=== PATIENT | female | born 1965 | race Caucasian/White ===

== ENCOUNTER 2016-10-21 09:19 | Outpatient (CLI) | payer MEDICARE | END 2016-10-21 09:20 | disposition home or self-care (01) | DX: F31.5 Bipolar disorder, current episode depressed, severe, with psychotic features (principal) ==

== ENCOUNTER 2016-10-30 08:00 | Outpatient (CLI) | payer MEDICARE | END 2016-10-30 08:01 | disposition home or self-care (01) | DX: F31.5 Bipolar disorder, current episode depressed, severe, with psychotic features (principal) ==

== ENCOUNTER 2016-11-12 10:40 | Outpatient (CLI) | payer MEDICARE | END 2016-11-12 10:41 | disposition home or self-care (01) | DX: F31.5 Bipolar disorder, current episode depressed, severe, with psychotic features (principal) ==

== ENCOUNTER 2016-11-20 13:15 | Outpatient (CLI) | payer MEDICARE | END 2016-11-20 13:16 | disposition home or self-care (01) | DX: F31.5 Bipolar disorder, current episode depressed, severe, with psychotic features (principal) ==

== ENCOUNTER 2016-11-27 14:21 | Outpatient (CLI) | payer MEDICARE | END 2016-11-27 14:22 | disposition home or self-care (01) | DX: F31.5 Bipolar disorder, current episode depressed, severe, with psychotic features (principal) ==

== ENCOUNTER 2016-12-07 12:46 | Outpatient (CLI) | payer MEDICARE | END 2016-12-07 12:47 | disposition home or self-care (01) | DX: F31.5 Bipolar disorder, current episode depressed, severe, with psychotic features (principal) ==

== ENCOUNTER 2016-12-15 11:29 | Outpatient (CLI) | payer MEDICARE | END 2016-12-15 11:30 | DX: F31.5 Bipolar disorder, current episode depressed, severe, with psychotic features (principal) ==

== ENCOUNTER 2016-12-22 09:28 | Outpatient (CLI) | payer MEDICARE | END 2016-12-22 09:29 | disposition home or self-care (01) | DX: F31.5 Bipolar disorder, current episode depressed, severe, with psychotic features (principal) ==

== ENCOUNTER 2016-12-29 12:42 | Outpatient (CLI) | payer MEDICARE | END 2016-12-29 12:43 | disposition home or self-care (01) | DX: F31.5 Bipolar disorder, current episode depressed, severe, with psychotic features (principal) ==

== ENCOUNTER 2017-01-05 11:02 | Outpatient (CLI) | payer MEDICARE | END 2017-01-05 11:03 | disposition home or self-care (01) | DX: F31.5 Bipolar disorder, current episode depressed, severe, with psychotic features (principal) ==

== ENCOUNTER 2017-01-12 11:15 | Outpatient (CLI) | payer MEDICARE | END 2017-01-12 11:16 | disposition home or self-care (01) | DX: F31.5 Bipolar disorder, current episode depressed, severe, with psychotic features (principal) ==

== ENCOUNTER 2017-01-19 09:34 | Outpatient (CLI) | payer MEDICARE | END 2017-01-19 09:35 | disposition home or self-care (01) | DX: F31.5 Bipolar disorder, current episode depressed, severe, with psychotic features (principal) ==

== ENCOUNTER 2017-01-26 09:28 | Outpatient (CLI) | payer MEDICARE | END 2017-01-26 09:29 | disposition home or self-care (01) | DX: F31.5 Bipolar disorder, current episode depressed, severe, with psychotic features (principal) ==

== ENCOUNTER 2017-02-09 09:29 | Outpatient (CLI) | payer MEDICARE | END 2017-02-09 09:30 | disposition home or self-care (01) | DX: F31.5 Bipolar disorder, current episode depressed, severe, with psychotic features (principal) ==

== ENCOUNTER 2017-02-16 11:09 | Outpatient (CLI) | payer MEDICARE | END 2017-02-16 11:10 | disposition home or self-care (01) | DX: F31.5 Bipolar disorder, current episode depressed, severe, with psychotic features (principal) ==

== ENCOUNTER 2017-02-23 10:37 | Outpatient (CLI) | payer MEDICARE | END 2017-02-23 10:38 | disposition home or self-care (01) | DX: F31.5 Bipolar disorder, current episode depressed, severe, with psychotic features (principal) ==

== ENCOUNTER 2017-03-02 12:49 | Outpatient (CLI) | payer MEDICARE | END 2017-03-02 12:50 | disposition home or self-care (01) | LOC: LAB.F 12:49 | PROVIDERS: ATTEND Physician Assistant Medical | DX: F31.5 Bipolar disorder, current episode depressed, severe, with psychotic features (principal) | CPT/HCPCS: 36415; 80164 ==

== ENCOUNTER 2017-03-09 10:04 | Outpatient (CLI) | payer MEDICARE | END 2017-03-09 10:05 | disposition home or self-care (01) | LOC: LAB.F 10:04 | PROVIDERS: ATTEND Physician Assistant Medical | DX: F31.5 Bipolar disorder, current episode depressed, severe, with psychotic features (principal) | CPT/HCPCS: 36415; 80164 ==

== ENCOUNTER 2017-03-22 12:46 | Outpatient (CLI) | payer MEDICARE | END 2017-03-22 12:47 | disposition home or self-care (01) | LOC: LAB.F 12:46 | PROVIDERS: ATTEND Physician Assistant Medical | DX: F31.5 Bipolar disorder, current episode depressed, severe, with psychotic features (principal) | CPT/HCPCS: 36415; 80164 ==

== ENCOUNTER 2017-03-23 08:35 | Outpatient (CLI) | payer MEDICARE | END 2017-03-23 08:36 | disposition home or self-care (01) | LOC: DI 08:35 | PROVIDERS: ATTEND Physician Assistant Medical | DX: R01.1 Cardiac murmur, unspecified (principal); I49.9 Cardiac arrhythmia, unspecified | CPT/HCPCS: 93306 ==

== ENCOUNTER 2017-03-30 09:55 | Outpatient (CLI) | payer MEDICARE | END 2017-03-30 09:56 | disposition home or self-care (01) | LOC: LAB.F 09:55 | PROVIDERS: ATTEND Physician Assistant Medical | DX: F31.5 Bipolar disorder, current episode depressed, severe, with psychotic features (principal) | CPT/HCPCS: 36415; 80164 ==

== ENCOUNTER 2017-07-27 13:10 | Outpatient (CLI) | payer MEDICARE ==
--- NOTE | 2017-07-30 13:08 | Mammography Report ---
DIGITAL SCREENING MAMMOGRAM: 07/27/2017 CLINICAL INDICATION: A 52-year-old for screening, history of implants. The patient's previous mammograms have been purged. This will serve as a new baseline. TECHNIQUE: Routine CC and MLO projections were obtained of the breasts as well as bilateral implant displaced views. FINDINGS: The breasts demonstrate fatty replacement bilaterally. Coarse, typically benign calcifica tions are present. Bilateral subpectoral saline implants are present. No suspicious masses, cluster ed microcalcifications, or regions of architectural distortion are identified. IMPRESSION: BENIGN FINDINGS. RECOMMENDATION: Routine annual screening unless otherwise clinically indicated. BIRADS CATEGORY 2 - BENIGN FINDINGS. STANDARD QUALIFYING STATEMENTS 1. This examination was reviewed with the aid of Computer-Aided Detection (CAD). 2. A negative or benign imaging report should not delay biopsy if clinically suspicious findings are present. Consider surgical consultation if warranted. More than 5% of cancers are not identified by i maging. 3. Dense breasts may obscure an underlying neoplasm. JOB #: [id number] EXT JOB #:[id number]
== END 2017-07-27 13:11 | disposition home or self-care (01) ==
LOC: DI.S 13:10
PROVIDERS: ATTEND Physician Assistant Medical
DX: Z12.31 Encounter for screening mammogram for malignant neoplasm of breast (principal); Z98.82 Breast implant status
CPT/HCPCS: 77067

== ENCOUNTER 2017-11-03 07:45 | Outpatient (CLI) | payer MEDICARE ==
[2017-11-03 11:46] LABS: BASOPHILS # (AUTO) 0.2 10^3/uL (0.0-0.1); BASOPHILS % (AUTO) 3.9 %; EOSINOPHILS # (AUTO) 0.1 10^3/uL (0.0-0.7); EOSINOPHILS % (AUTO) 3.5 %; HGB - HEMOGLOBIN 15.1 g/dL (12.0-16.0); LYMPHOCYTES # (AUTO) 1.6 10^3/uL (1.5-3.5); LYMPHOCYTES % (AUTO) 39.5 %; MEAN CORPUSCULAR HEMOGLOBIN 31.3 pg (27.0-31.0); MEAN CORPUSCULAR HGB CONC 32.8 g/dL (32.0-36.0); MEAN CORPUSCULAR VOLUME 95.2 fL (81.0-99.0); MONOCYTES # (AUTO) 0.3 10^3/uL (0.0-1.0); MONOCYTES % (AUTO) 6.5 %; NEUTROPHILS # (AUTO) 1.9 10^3/uL (1.5-6.6); NEUTROPHILS % (AUTO) 46.6 %; PLT - PLATELET COUNT 152 10^3/uL (130-450); RED BLOOD COUNT 4.82 10^6/uL (4.20-5.40); RED CELL DISTRIBUTION WIDTH 14.7 % (12.0-15.0); WHITE BLOOD COUNT 4.1 x10^3/uL (4.8-10.8)
[2017-11-03 12:01] LABS: ALBUMIN 3.8 g/dL (3.2-5.5); ALBUMIN/GLOBULIN RATIO 1.1 (1.0-2.2); ALKALINE PHOSPHATASE 60 IU/L (42-121); ALT ALANINE AMINOTRANSFERASE 26 IU/L (10-60); AST ASPARTATE AMINOTRANSFERASE 27 IU/L (10-42); BILIRUBIN,TOTAL 0.8 mg/dL (0.2-1.0); BUN - BLOOD UREA NITROGEN 15 mg/dL (6-20); CARBON DIOXIDE - CO2 24 mmol/L (21-32); CHLORIDE 104 mmol/L (101-111); CREATININE 0.9 mg/dL (0.4-1.0); GFR - MDRD 65 (>89); GLUCOSE 97 mg/dL (70-100); SODIUM 138 mmol/L (135-145); TOTAL PROTEIN 7.4 g/dL (6.7-8.2); VALPROIC ACID (DEPAKOTE) 71.8 ug/mL
== END 2017-11-03 07:46 | disposition home or self-care (01) ==
LOC: LAB.F 07:45
PROVIDERS: ATTEND Physician Assistant Medical
DX: Z00.00 Encounter for general adult medical examination without abnormal findings (principal); Z51.81 Encounter for therapeutic drug level monitoring; I49.9 Cardiac arrhythmia, unspecified; F31.5 Bipolar disorder, current episode depressed, severe, with psychotic features; R01.1 Cardiac murmur, unspecified; K76.6 Portal hypertension; F60.3 Borderline personality disorder; J44.9 Chronic obstructive pulmonary disease, unspecified; M35.00 Sjogren syndrome, unspecified
CPT/HCPCS: 36415; 80053; 80061; 80164; 84443; 85025

== ENCOUNTER 2018-08-15 21:47 | Emergency (ER) | payer MEDICARE ==
[2018-08-15 22:30] LABS: BASOPHILS # (AUTO) 0.1 10^3/uL (0.0-0.1); BASOPHILS % (AUTO) 0.9 %; EOSINOPHILS # (AUTO) 0.2 10^3/uL (0.0-0.7); EOSINOPHILS % (AUTO) 2.1 %; HGB - HEMOGLOBIN 16.4 g/dL (12.0-16.0); LYMPHOCYTES # (AUTO) 2.8 10^3/uL (1.5-3.5); LYMPHOCYTES % (AUTO) 32.5 %; MEAN CORPUSCULAR HEMOGLOBIN 33.5 pg (27.0-31.0); MEAN CORPUSCULAR HGB CONC 34.4 g/dL (32.0-36.0); MEAN CORPUSCULAR VOLUME 97.2 fL (81.0-99.0); MONOCYTES # (AUTO) 0.5 10^3/uL (0.0-1.0); MONOCYTES % (AUTO) 5.3 %; NEUTROPHILS # (AUTO) 5.1 10^3/uL (1.5-6.6); NEUTROPHILS % (AUTO) 59.2 %; PLT - PLATELET COUNT 219 10^3/uL (130-450); RED BLOOD COUNT 4.89 10^6/uL (4.20-5.40); RED CELL DISTRIBUTION WIDTH 13.7 % (12.0-15.0); WHITE BLOOD COUNT 8.7 x10^3/uL (4.8-10.8)
[2018-08-15 22:31] LABS: MUDS CUTOFF CONCENTRATIONS CUTOFF CONC BELOW:
[2018-08-15 22:32] LABS: BILIRUBIN,URINE NEGATIVE (NEGATIVE); GLUCOSE, URINE (UA) NEGATIVE (NEGATIVE); KETONES,URINE (UA) NEGATIVE (NEGATIVE); LEUKOCYTE ESTERASE, URINE NEGATIVE (NEGATIVE); NITRITE,URINE NEGATIVE (NEGATIVE); OCCULT BLOOD,URINE NEGATIVE (NEGATIVE); PROTEIN,URINE NEGATIVE (NEGATIVE); UROBILINOGEN,URINE 0.2 (NORMAL) E.U./dL (NORMAL)
[2018-08-15 22:37] LABS: CLARITY,URINE CLEAR (CLEAR)
[2018-08-15 22:46] LABS: ACETAMINOPHEN < 10 ug/mL (10-30); ALBUMIN 4.4 g/dL (3.2-5.5); ALKALINE PHOSPHATASE 89 IU/L (42-121); ALT ALANINE AMINOTRANSFERASE 39 IU/L (10-60); AST ASPARTATE AMINOTRANSFERASE 39 IU/L (10-42); BILIRUBIN,TOTAL 0.8 mg/dL (0.2-1.0); BUN - BLOOD UREA NITROGEN 14 mg/dL (6-20); CALCIUM 9.3 mg/dL (8.5-10.3); CARBON DIOXIDE - CO2 22 mmol/L (21-32); CHLORIDE 103 mmol/L (101-111); CREATININE 0.8 mg/dL (0.4-1.0); GFR - MDRD 75 (>89); GLUCOSE 92 mg/dL (70-100); LIPASE 43 U/L (22-51); SALICYLATE < 6.0 mg/dL; SODIUM 139 mmol/L (135-145); TOTAL PROTEIN 8.8 g/dL (6.7-8.2)
[2018-08-15 22:46] LABS: AMPHETAMINE SCREEN,URINE NEGATIVE (NEGATIVE); BENZODIAZEPINES SCREEN, URINE NEGATIVE (NEGATIVE); COCAINE SCREEN URINE NEGATIVE (NEGATIVE); METHADONE SCREEN, URINE NEGATIVE (NEGATIVE); METHAMPHETAMINES SCREEN, URINE NEGATIVE (NEGATIVE); OPIATE SCREEN, URINE NEGATIVE (NEGATIVE); OXYCODONE SCREEN, URINE NEGATIVE (NEGATIVE); PROPOXYPHENE SCREEN, URINE NEGATIVE (NEGATIVE); TRICYCLIC ANTIDEPRESSANT,URINE NEGATIVE (NEGATIVE)
--- NOTE | 2018-08-16 00:36 | ED Physician Documentation ---
PD HPI MHE - Stated complaint Stated Complaint: MHE - Chief complaint Chief Complaint: MHE - History obtained from History obtained from: Patient - History of Present Illness Primary symptom: Suicidal ideation Timing - onset: Today Contributing factors: Family, Substance abuse - ETOH Similar symptoms before: Diagnosis (bipolar disorder) Recently seen: Not recently seen - Additional information Additional information: 53-year-old female with a history of bipolar disorder was in an argument with her daughter earlier today who was having a bad day. The patient states that some herbal things were said by both parties and the patient herself is been drinking this evening and she began to feel suicidal and she drove herself here to the hospital. She states that she is no longer feeling suicidal and she believes that her daughter may come to pick her up as she has had a period of cooling off. Patient states that she had an admission to a psychiatric facility 2 years ago and since that time she has been doing well on her medications she has not missed any doses of her medications she has not missed any of her appointments. Review of Systems Constitutional: denies: Fever, Chills, Myalgias Eyes: denies: Decreased vision Ears: denies: Ear pain Nose: denies: Congestion Throat: denies: Sore throat Cardiac: denies: Chest pain / pressure, Palpitations Respiratory: denies: Dyspnea, Cough GI: denies: Nausea, Vomiting : denies: Dysuria, Frequency Skin: denies: Rash Musculoskeletal: denies: Neck pain, Back pain, Extremity pain Neurologic: denies: Generalized weakness, Focal weakness, Numbness Psychiatric: reports: Depressed. 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 - Present Medications Home Medications: Ambulatory Orders Medication Instructions Recorded Confirmed Fluticasone/Vilanterol [Breo 1 inh CHELSIE DAILY 07/06/16 07/06/16 Ellipta 100-25 Mcg INH] Lorazepam [Ativan] 1 tab PO Q6HR PRN 07/06/16 07/06/16 RX: Divalproex Sodium 250 mg PO QDBREAKFAST 07/06/16 07/06/16 RX: Divalproex Sodium [Depakote ER] 500 mg PO QPM 07/06/16 07/06/16 RX: Gabapentin 100 mg PO DAILY 07/06/16 07/06/16 RX: Quetiapine Fumarate [Seroquel] 50 mg PO DAILY 07/06/16 07/06/16 RX: cephALEXin [Cephalexin] 500 mg PO QID 07/06/16 07/06/16 Silver Sulfadiazine [Silvadene] 1 each TOP DAILY 07/06/16 07/06/16 - Allergies Allergies/Adverse Reactions: Allergies Allergy/AdvReac Type Severity Reaction Status Date / Time No Known Drug Allergies Allergy Verified 06/11/16 16:25 - Social History Does the pt smoke?: Yes Smoking Status: Current every day smoker Does the pt drink ETOH?: Yes Does the pt have substance abuse?: Yes PD ED PE NORMAL - Vitals Vital signs reviewed: Yes (hypertensive) - General General: Alert and oriented X 3, No acute distress, Well developed/nourished - HEENT HEENT: Atraumatic, PERRL, EOMI - Neck Neck: Supple, no meningeal sign, No bony TTP - Cardiac Cardiac: RRR, No murmur - Respiratory Respiratory: No respiratory distress, Clear bilaterally - Abdomen Abdomen: Soft, Non tender - Back Back: No CVA TTP, No spinal TTP - Derm Derm: Normal color, Warm and dry, No rash - Extremities Extremities: No deformity, No edema - Neuro Neuro: Alert and oriented X 3, air brake rigger 2-12 intact, No motor deficit, No sensory deficit, Normal speech (There is no evidence of pressured speech, flight of ideas or poverty of content. ) Eye Opening: Spontaneous Motor: Obeys Commands Verbal: Oriented GCS Score: 15 - Psych Psych: Other (mood is anxious and the affect is flat ) Results - Vitals Vitals: Vital Signs - 24 hr 08/15/18 08/15/18 08/16/18 21:51 22:15 03:37 Temperature 36.7 C 36.3 C L Heart Rate 91 85 Respiratory 18 17 16 Rate Blood Pressure 147/93 H 133/82 H O2 Saturation 96 95 Oxygen O2 Source Room air - Labs Labs: Laboratory Tests 08/15/18 08/15/18 08/15/18 22:15 22:25 22:25 WBC 8.7 RBC 4.89 Hgb 16.4 H Hct 47.6 H MCV 97.2 MCH 33.5 H MCHC 34.4 RDW 13.7 Plt Count 219 MPV 8.0 Neut # (Auto) 5.1 Lymph # (Auto) 2.8 Green # (Auto) 0.5 Eos # (Auto) 0.2 Baso # (Auto) 0.1 Absolute Nucleated RBC 0.01 Nucleated RBC % 0.1 Sodium 139 Potassium 4.1 Chloride 103 Carbon Dioxide 22 Anion Gap 14.0 H BUN 14 Creatinine 0.8 Estimated GFR (MDRD) 75 L Glucose 92 Calcium 9.3 Total Bilirubin 0.8 AST 39 ALT 39 Alkaline Phosphatase 89 Total Protein 8.8 H Albumin 4.4 Globulin 4.4 H Albumin/Globulin Ratio 1.0 Lipase 43 Urine Color YELLOW Urine Clarity CLEAR Urine pH 6.0 Ur Specific [place] <=1.005 Urine Protein NEGATIVE Urine Glucose (UA) NEGATIVE Urine Ketones NEGATIVE Urine Occult Blood NEGATIVE Urine Nitrite NEGATIVE Urine Bilirubin NEGATIVE Urine Urobilinogen 0.2 (NORMAL) Ur Leukocyte Esterase NEGATIVE Ur Microscopic Review NOT INDICATED Urine Culture Comments NOT INDICATED Salicylates < 6.0 Urine Opiates Screen NEGATIVE Ur Oxycodone Screen NEGATIVE Urine Methadone Screen NEGATIVE Ur Propoxyphene Screen NEGATIVE Acetaminophen < 10 L Ur Barbiturates Screen NEGATIVE Ur Tricyclics Screen NEGATIVE Ur Phencyclidine Scrn NEGATIVE Ur Amphetamine Screen NEGATIVE U Methamphetamines Scrn NEGATIVE U Benzodiazepines Scrn NEGATIVE Urine Cocaine Screen NEGATIVE U Cannabinoids Screen POSITIVE H Ethyl Alcohol 146.8 08/16/18 02:52 WBC RBC Hgb Hct MCV MCH MCHC RDW Plt Count MPV Neut # (Auto) Lymph # (Auto) Green # (Auto) Eos # (Auto) Baso # (Auto) Absolute Nucleated RBC Nucleated RBC % Sodium Potassium Chloride Carbon Dioxide Anion Gap BUN Creatinine Estimated GFR (MDRD) Glucose Calcium Total Bilirubin AST ALT Alkaline Phosphatase Total Protein Albumin Globulin Albumin/Globulin Ratio Lipase Urine Color Urine Clarity Urine pH Ur Specific [place] Urine Protein Urine Glucose (UA) Urine Ketones Urine Occult Blood Urine Nitrite Urine Bilirubin Urine Urobilinogen Ur Leukocyte Esterase Ur Microscopic Review Urine Culture Comments Salicylates Urine Opiates Screen Ur Oxycodone Screen Urine Methadone Screen Ur Propoxyphene Screen Acetaminophen Ur Barbiturates Screen Ur Tricyclics Screen Ur Phencyclidine Scrn Ur Amphetamine Screen U Methamphetamines Scrn U Benzodiazepines Scrn Urine Cocaine Screen U Cannabinoids Screen Ethyl Alcohol 56.1 PD MEDICAL DECISION MAKING - ED course Complexity details: reviewed old records, reviewed results, re-evaluated patient, considered differential, d/w patient ED course: 53-year-old female with history of bipolar disorder has had an argument with her daughter luis armando and become intoxicated and suicidal. She is no longer suicidal she does have adequate follow-up and we have elicited the help of psychiatry via tele-psych for a second opinion. The psychiatrist agrees with our evaluation and believes the patient will do well with the follow-up she already has in place to see her psychiatrist today and her psychologist in 3 days. The patient drove herself to the hospital and we have repeated her blood alcohol at 56 and will allow her to leave the hospital. Departure - Departure Disposition: 01 Home, Self Care Clinical Impression: Bipolar affective disorder Condition: Stable Instructions: ED Depression Follow-Up: Zoey Bauman PA-C [Primary Care Provider] - Discharge Date/Time: 08/16/18 03:37
--- NOTE | 2018-08-16 03:08 | TELEPSYCH PHYS NOTE ---
Telepsych Note - CHIEF COMPLAINT/HX OF PRESENT ILLNESS Cheif Complaint and History of Present Illness: Pt seen via televideo with the help of onsite staff. Pt is a 53 yo female with Bipolar Disorder and alcohol abuse. Pt presented to the hospital, self referred after experiencing suicidal ideation. Pt reports she lives with her daughter and grandson. States they had an argument which escalated. States they both said harsh things about each other. States after the argument her daughter left the home and she started drinking. States she started to experience thoughts of suicide. Reports no plan nor intent. States she has experienced SI in the past when stressed. Reports no hx of attempts nor planning. States prior to this she had been doing well. States she is currently seeing a therapist and psychiatrist. Currently undergoing medication changes related to her panic and agoraphobia. States however her depressive sxs have been well controlled. States given her improvements her SI thoughts scared her and she drove herself to the hospital. States I would never kill myself. She cites her children, grandson and herself as strong deterrents against suicide. Tobacco Dipper spoke to the pts daughter, Kim @ [phone] who confirms that they did have a large argument earlier. Feels that her mother has been improving however also believes that she needs a lot of attention and help from her which at times can be difficult. States she has talked about SI on and off in the past. States not frequently but usually when stressed or triggered. Has never reported a plan nor attempted. States she is unsure of whether she would ever harm herself. Does believe she is trying to maintain her stability and that she and that her family means everything to her. States she could benefit from inpt treatment, why not it couldnt hurt. On ROS, pt denies AVHs, delusions nor HI. She denies current SI. Admits to earlier fleeting thoughts of SI, after an argument with her daughter and drinking. She denies ever having any intent plan nor desire to act on the suicidal thoughts. Pt states she believes much of the SI thoughts were related to her drinking and the argument. States additionally, she and her daughter have talked and they acknowledge the harsh things they each said and she feels they can move on. Pt has no prior hx of suicide attempts. She is future oriented, compliant with outpt treatment and cites strong deterrents in her children and grandson. Also states that she does not want to . Pt indicates she has been working hard on improving her life which she indicates started with her mental health treatment. Melinda she sees her therapist weekly and psychiatrist q 2 weeks during medication changes. Current changes include the addition of hydroxyzine for her several anxiety sxs. At this time there is no evidence of imminent danger to require inpt admission and the pt can be managed as an outpt. - SI/HI/SELF HARM SI/HI/Self Harm Text (Current or History of):: Reports hx of suicidal ideation. No attempts. Denies current SI. - VIOLENCE/LEGAL/COLLATERAL Violence - Legal - Collateral: Denies a hx of violence nor incarceration - PSYCHIATRIC HX/TREATMENT HX Psychiatric: Bipolar disorder - DRUG/ALCOHOL HX ETOH Use: Wine - MEDICAL HX Does the pt have a hx of MRSA?: No Cardiovascular: Hypertension Gastrointestinal: Pancreatitis, Cirrhosis Musculoskeletal: Fibromyalgia - SURGICAL HX General: Bowel surgery, Colonoscopy Gynecologic: Breast implants - HOME MEDICATIONS Home Meds (as last confirmed): Patient History Medication Instructions Recorded Confirmed Divalproex Sodium 250 mg PO QDBREAKFAST 07/06/16 07/06/16 Divalproex Sodium [Depakote ER] 500 mg PO QPM 07/06/16 07/06/16 Fluticasone/Vilanterol [Breo 1 inh CHELSIE DAILY 07/06/16 07/06/16 Ellipta 100-25 Mcg INH] Gabapentin 100 mg PO DAILY 07/06/16 07/06/16 Lorazepam [Ativan] 1 tab PO Q6HR PRN 07/06/16 07/06/16 Quetiapine Fumarate [Seroquel] 50 mg PO DAILY 07/06/16 07/06/16 Silver Sulfadiazine [Silvadene] 1 each TOP DAILY 07/06/16 07/06/16 cephALEXin [Cephalexin] 500 mg PO QID 07/06/16 07/06/16 - ALLERGIES Allergies (as last confirmed): Allergies Allergy/AdvReac Type Severity Reaction Status Date / Time No Known Drug Allergies Allergy Verified 06/11/16 16:25 - FAMILY PSYCH/SUICIDE/SOCIAL HX-MENTAL Family - Suicide - Social Hx and Mental Status Exam: none known - TREATMENT/PHARMACOLOGICAL RECOMMENDATION Treatment - Pharmacological - Therapy Recommendations: Pt can be discharged from a psychiatric standpoint Pt has outpt follow up wth her therapist (weekly on ) Follow up with her psychiatrist, Dr. Villanueva today 08/16/18 @ 1:30pm - TIME SPENT & PROVIDER LOCATION Telepsych consultation conducted via videoconferencing: Yes List names and roles of persons who participated in consult: Lindy craig (patient), Ralph (telepsychiatrsit), Kim (daughter via phone) Telepsych Provider Location: MD Time Telepsych consult began: 05:50 Time Telepsych consult completed: 06:20
[2018-08-16 03:38] VITALS: BP 133/82
== END 2018-08-16 03:37 | disposition home or self-care (01) ==
LOC: ED 21:47
DX: F31.9 Bipolar disorder, unspecified (principal); Z91.5 Personal history of self-harm; I10 Essential (primary) hypertension; M79.7 Fibromyalgia; F17.200 Nicotine dependence, unspecified, uncomplicated
CPT/HCPCS: 36415; 80053; 81003; 83690; 85025; 99283; G0425; Q3014; 80306; 80307; 80320; 80329; 81001; 87086

== ENCOUNTER 2018-12-15 13:11 | Outpatient (CLI) | payer MEDICARE ==
[2018-12-15 17:53] LABS: VALPROIC ACID (DEPAKOTE) 88.8 ug/mL
== END 2018-12-15 13:12 | disposition home or self-care (01) ==
LOC: LAB.F 13:11
PROVIDERS: ATTEND Physician Assistant Medical
DX: Z51.81 Encounter for therapeutic drug level monitoring (principal)
CPT/HCPCS: 36415; 80164

== ENCOUNTER 2020-11-19 09:00 | Outpatient (CLI) | payer MEDICARE ==
--- NOTE | 2020-11-19 09:48 | Ultrasound Report ---
PROCEDURE: Abdomen Limited INDICATIONS: INCISIONAL HERNIA TECHNIQUE: Real-time focused scanning was performed of the abdomen, with image documentation. COMPARISON: 01/16/2016 abdominal ultrasound FINDINGS: There is a nonreducible fat-containing hernia at the patient's area of interest just super ior to the umbilicus. The fascial defect measures approximately 1 cm. The volume of hyperechoic fat w ithin the hernia sac measures approximately 1.3 x 2.3 x 2.5 cm. There is not appear to be any bowel w ithin the hernia. IMPRESSION: Fat containing nonreducible hernia just superior to the umbilicus. Reviewed by: Nishant Ackerman MD on 11/19/2020 9:47 AM PST Approved by: Nishant Ackerman MD on 11/19/2020 9:47 AM PST Station ID: [id number]
== END 2020-11-19 09:01 | disposition home or self-care (01) ==
LOC: DI 09:00
PROVIDERS: ATTEND Nurse Practitioner Family
DX: K42.9 Umbilical hernia without obstruction or gangrene (principal)

== ENCOUNTER 2020-11-21 08:00 | Outpatient (CLI) | payer MEDICARE ==
[2020-11-21 18:23] LABS: BASOPHILS % (AUTO) 0.6 %; EOSINOPHILS % (AUTO) 1.1 %; HGB - HEMOGLOBIN 13.8 g/dL (12.0-16.0); LYMPHOCYTES # (AUTO) 1.7 10^3/uL (1.5-3.5); LYMPHOCYTES % (AUTO) 47.6 %; MEAN CORPUSCULAR HEMOGLOBIN 29.5 pg (27.0-31.0); MEAN CORPUSCULAR HGB CONC 31.9 g/dL (32.0-36.0); MEAN CORPUSCULAR VOLUME 92.5 fL (81.0-99.0); MEAN PLATELET VOLUME 11.3 fL (7.9-10.8); MONOCYTES # (AUTO) 0.4 10^3/uL (0.0-1.0); MONOCYTES % (AUTO) 10.9 %; NEUTROPHILS # (AUTO) 1.4 10^3/uL (1.5-6.6); NEUTROPHILS % (AUTO) 38.9 %; PLT - PLATELET COUNT 128 10^3/uL (130-450); RED BLOOD COUNT 4.68 10^6/uL (4.20-5.40); RED CELL DISTRIBUTION WIDTH 14.8 % (12.0-15.0); WHITE BLOOD COUNT 3.5 x10^3/uL (4.8-10.8)
[2020-11-21 18:37] LABS: ALBUMIN 3.6 g/dL (3.2-5.5); ALBUMIN/GLOBULIN RATIO 1.1 (1.0-2.2); ALKALINE PHOSPHATASE 88 IU/L (42-121); ALT ALANINE AMINOTRANSFERASE 29 IU/L (10-60); AST ASPARTATE AMINOTRANSFERASE 27 IU/L (10-42); BILIRUBIN,TOTAL 0.7 mg/dL (0.2-1.0); BUN - BLOOD UREA NITROGEN 16 mg/dL (6-20); CALCIUM 8.7 mg/dL (8.5-10.3); CARBON DIOXIDE - CO2 26 mmol/L (21-32); CHLORIDE 103 mmol/L (101-111); CHOL/HDL RATIO 2.8 (<4.4); CHOLESTEROL 157 mg/dL; CREATININE 0.9 mg/dL (0.4-1.0); GLUCOSE 112 mg/dL (70-100); HDL CHOLESTEROL 56 mg/dL; LDL CHOLESTEROL,CALCULATED 76 mg/dL; LDL/HDL RATIO 1.4 (<4.4); VALPROIC ACID (DEPAKOTE) 61.4 ug/mL; VLDL CHOLESTEROL 25 mg/dL
[2020-11-21 20:37] LABS: HEMOGLOBIN A1c% 6.4 % (4.27-6.07)
== END 2020-11-21 23:59 | disposition home or self-care (01) ==
LOC: LAB.WCP 08:00
PROVIDERS: ATTEND Psychiatry & Neurology Psychiatry
DX: Z51.81 Encounter for therapeutic drug level monitoring (principal)
CPT/HCPCS: 36415; 80053; 80061; 80164; 83036; 83721; 85025

== ENCOUNTER 2020-11-29 08:00 | Outpatient (CLI) | payer MEDICARE | END 2020-11-29 23:59 | disposition home or self-care (01) | LOC: LAB 08:00 | PROVIDERS: ATTEND Surgery | DX: Z01.812 Encounter for preprocedural laboratory examination (principal); Z20.822 Contact with and (suspected) exposure to COVID-19; K43.2 Incisional hernia without obstruction or gangrene | CPT/HCPCS: 81025 ==

== ENCOUNTER 2020-12-03 10:02 | Day surgery (SDC) | payer MEDICARE ==
[~2020-12-03 10:02] MED LIST: ceFAZolin 2 GM/50 ML 2 GM/50 ML BAG IV ONE
[2020-12-03] MEDS ORDERED: BUPIVACAINE 0.5% PF 30 ML VIAL INFIL ONE ×2 (10:17→12:42)
[2020-12-03] MEDS ORDERED: BUPIVACAINE 0.5% PF 30 ML VIAL ONE (10:23)
--- NOTE | 2020-12-03 10:53 | ANESTHESIA ---
Pre-Anesthesia VS, & Labs - Diagnosis incisional hernia - Procedure Open Incisional hernia repair with mesh Vital Signs: Temp Pulse Resp BP Pulse Ox 36.7 C 87 18 147/96 H 96 12/03/20 10:21 12/03/20 10:21 12/03/20 10:21 12/03/20 10:21 12/03/20 10:21 Height: 5 ft 5 in Weight (kg): 97 kg Body Mass Index: 35.6 BMI Classification: Obese - NPO >8 hours - Is Patient ?: No - Lab Results Lab results reviewed: Yes Home Medications and Allergies Home Medications: Ambulatory Orders Mirtazapine [Remeron] 30 mg PO QPM 12/02/20 clonazePAM [KlonoPIN] 0.5 mg PO BID PRN 12/02/20 hydrOXYzine HCL [Hydroxyzine HCl] 50 mg PO TID 12/02/20 Divalproex Sodium 500 mg PO QPM 07/06/16 Divalproex Sodium [Depakote ER] 1,000 mg PO DAILY 07/06/16 Gabapentin 100 mg PO BID 07/06/16 Quetiapine Fumarate [Seroquel] 300 mg PO QPM 07/06/16 Mirtazapine [Remeron] 30 mg PO QPM 12/02/20 clonazePAM [KlonoPIN] 0.5 mg PO BID PRN 12/02/20 hydrOXYzine HCL [Hydroxyzine HCl] 50 mg PO TID 12/02/20 Allergies/Adverse Reactions: Allergies Allergy/AdvReac Type Severity Reaction Status Date / Time buspirone AdvReac Dizziness Verified 12/03/20 10:51 codeine AdvReac Nausea Verified 12/02/20 10:23 Anes History & Medical History - Anesthetic History Anesthesia Complications: reports: No previous complications Family history of Anesthesia Complications: Denies Family history of Malignant Hyperthermia: Denies - Medical History Pulmonary: reports: None Gastrointestinal: reports: GERD Urinary: reports: None Endocrine/Autoimmune: reports: None Skin: reports: None Smoking Status: Current every day smoker (vapes CBD) Psychosocial: reports: Cannabis, Other (Bipolar) - Surgical History General: Bowel surgery, Colonoscopy, EGD Gynecologic: Breast implants Exam General: Alert, Oriented x3, Cooperative, No acute distress Dental: WNL Mouth Openin Fingerbreadth Neck Mobility: Normal Mallampati classification: I Respiratory: Lungs clear, Normal breath sounds, No respiratory distress, No accessory muscle use Cardiovascular: Regular rate, Normal S1, Normal S2, No murmurs Plan Anesthesia Type: General Consent for Procedure(s) Verified and Reviewed: Yes Code Status: Attempt Resuscitation ASA classification: 2-Mild systemic disease Is this case an emergency?: No
[2020-12-03] MEDS ORDERED: LACTATED RINGERS 1,000 ML IV ONE ×2 (10:54→13:10)
[2020-12-03] MEDS ORDERED: NALOXONE 0.4 MG/ML VIAL IVP PRN (11:10)
[2020-12-03] MEDS ORDERED: ONDANSETRON 4 MG/2 ML VIAL IVP PRN ×2 (11:10→13:38)
[2020-12-03] MEDS ORDERED: ATROPINE ABBOJECT 1 MG/10 ML SYRINGE IVP PRN (11:10)
[2020-12-03] MEDS ORDERED: ePHEDrine 50 MG/ML VIAL IVP PRN (11:10)
[2020-12-03] MEDS ORDERED: METOCLOPRAMIDE 10 MG/2 ML VIAL IVP PRN (11:10)
[2020-12-03] MEDS ORDERED: MORPHINE 2 MG/ML CARPUJECT IVP PRN (11:10)
[2020-12-03] MEDS ORDERED: fentaNYL 100 MCG/2 ML VIAL IVP PRN (11:10)
[2020-12-03] MEDS ORDERED: HYDROmorphone 0.5 MG/0.5 ML SYRINGE IVP PRN (11:10)
[2020-12-03] MEDS ORDERED: LIDOCAINE-MPF 2% 5 ML VIAL ONE (11:22)
[2020-12-03] MEDS ORDERED: PROPOFOL 200 MG/20 ML VIAL IVP ONE (11:22)
[2020-12-03] MEDS ORDERED: MIDAZOLAM 2 MG/2 ML VIAL ONE (11:22)
[2020-12-03] MEDS ORDERED: ROCURONIUM 50 MG/5 ML VIAL ONE (11:22)
[2020-12-03] MEDS ORDERED: DEXAMETHASONE 4 MG/ML VIAL ONE (11:58)
[2020-12-03] MEDS ORDERED: LACTATED RINGERS 1,000 ML IV SCH (12:00)
[2020-12-03] MEDS ORDERED: ePHEDrine 50 MG/ML VIAL IVP ONE (12:02)
[2020-12-03] MEDS ORDERED: NEOSTIGMINE 1 MG/1 ML 10 ML MDV ONE (12:47)
[2020-12-03] MEDS ORDERED: ONDANSETRON 4 MG/2 ML VIAL ONE (12:47)
[2020-12-03] MEDS ORDERED: GLYCOPYRROLATE 1 MG/5 ML VIAL ONE (12:47)
[2020-12-03] MEDS ORDERED: HYDROmorphone 1 MG/ML CARPUJECT ONE (13:01)
[2020-12-03] MEDS ORDERED: KETOROLAC 30 MG/ML VIAL ONE (13:08)
[2020-12-03] MEDS ORDERED: HYDROcod/ACETAM 5/325 MG TABLET PO PRN (13:09)
--- NOTE | 2020-12-03 13:09 | OPERATIVE REPORT ---
Operative Report - General Procedure Date: 12/03/20 Planned Procedure: open repair incisional hernia Pre-Op Diagnosis: incisional hernia Procedure Performed: open repair incarcerated incisional hernia with mesh Post Op Diagnosis: as above - Procedure Note Primary Surgeon: wellington puente Anesthesia Technique: General ET tube, Local Pathology: none Estimated Blood Loss (mL): 10 Drain/Tube Type: Other (none) Complications: none
[2020-12-03] MEDS ORDERED: METOCLOPRAMIDE 10 MG/2 ML VIAL ONE (13:35)
[2020-12-03] MEDS ORDERED: ONDANSETRON ODT 4 MG TABLET TL PRN (13:39)
[2020-12-03] MEDS ORDERED: PROCHLORPERAZINE 5 MG TABLET PO PRN (13:39)
[2020-12-03] MEDS ORDERED: clonazePAM 0.5 MG TABLET PO PRN (13:42)
--- NOTE | 2020-12-03 15:26 | ANESTHESIA POST OP EVALUATION ---
Anesthesia Post Eval - Post Anesthesia Eval Vitals: Last Vital Signs Temp 36.5 C 12/03/20 15:00 Pulse 89 12/03/20 15:00 Resp 16 12/03/20 15:00 BP 134/74 H 12/03/20 15:00 Pulse Ox 96 12/03/20 15:00 CV Function Including HR & BP: positive: Stable Pain Control: positive: Satisfactory Nausea & Vomiting: positive: Negative Mental Status: positive: Baseline Respiratory Status: Airway Patent Hydration Status: Satisfactory Anesthesia Complications: positive: None
--- NOTE | 2020-12-03 16:23 | OPERATIVE REPORT ---
DATE OF SERVICE: 12/03/2020 Physician: Huang Chatterjee MD PREOPERATIVE DIAGNOSIS: Incisional hernia. POSTOPERATIVE DIAGNOSIS: Incisional hernia, incarcerated. PROCEDURE: Open incisional hernia repair with mesh. SURGEON: Huang Chatterjee MD PASSENGER CONDUCTOR: None. ANESTHESIA: 1. General endotracheal anesthesia. 2. Local anesthesia with Marcaine. COMPLICATIONS: None. SPECIMENS: None. ESTIMATED BLOOD LOSS: 10 mL. DRAINS: None. FINDINGS: Densely incarcerated omentum. Approximately 4 cm fascial defect. COMPLICATIONS: None. PROSTHETIC: A 2-1/2 inch wide x 3 inch tall polypropylene mesh placed largely preperitoneal, retrore ctus and partially over previously incarcerated omentum. INDICATIONS FOR PROCEDURE: The patient is a 55-year-old with history of laparotomies for small-bowel obstruction. She has not had small bowel obstructive symptoms for many years. She has developed a symptomatic incisional hernia towards the top of her prior midline incision. She presents for open r epair with mesh. Risks discussed, alternatives discussed, all questions answered and consent obtaine d. DESCRIPTION OF PROCEDURE: The patient was properly identified and brought to the operating room and placed in supine position. She voided prior to surgery. General endotracheal anesthesia was induced . Sequential compression devices were placed. She was prepped and draped in a sterile fashion and g iven preoperative antibiotics. She was previously marked. A vertical 5 cm incision was made directl y over the hernia bulge, which was cephalad of the umbilicus. Dissection proceeded down to the incar cerated omentum. This was densely scarred. It was carefully mobilized away from fascia and musculat ure with combination of cutting current cautery and sharp dissection. The omentum was eventually rel eased from the abdominal wall and reduced. The dissection was kept largely preperitoneal; however, t here was small area where the peritoneum was too densely scarred to keep intact. Beneath this area w as omentum. A 3-inch tall x 2-inch wide polypropylene mesh was placed largely preperitoneal or over omentum and secured with multiple interrupted 0 Ethibond sutures. Sutures were placed approximately 3 cm back from the fascial defect edge in all directions. The anterior rectus sheath was then closed over the mesh with additional interrupted 0 Ethibond sutures. A good repair was obtained without un due tension. Subcutaneous tissue was closed with interrupted 2-0 Vicryl. Buried interrupted subderm al 3-0 Vicryl sutures were then placed. Skin was closed with a running 4-0 Monocryl subcuticular sut ure. Steri-Strips and dressing were applied. She tolerated the procedure well. TD: 12/03/2020 15:58
--- NOTE | 2020-12-03 18:52 | PHARMACY PROGRESS NOTE ---
- Best Possible Medication History Admit Date and Time: Processed by: Pharmacy Medication History completed: Yes Patient Interview: Completed (Interviewed by Purnima 12/03) Secondary Source(s): Insurance records As the person ultimately responsible for medication therapy, providers are able to order a medication from an existing home medication list in [facility] via the "Reconcile Routine" prior to Confirmation of that medication by support team member. Such practice is discouraged except when the physician, in their clinical judgment, deems that a medical need exists for a medication without regard to previous use.
[2020-12-03] MEDS ORDERED: QUEtiapine 100 MG TABLET PO SCH (21:00)
[2020-12-03] MEDS ORDERED: MIRTAZAPINE 15 MG TABLET PO SCH (21:00)
[2020-12-03] MEDS ORDERED: DIVALPROEX ER 250 MG TABLET PO SCH (21:00)
[2020-12-03] MEDS: GABAPENTIN 100 MG CAPSULE PO SCH (21:31)
[2020-12-03] MEDS: hydrOXYzine PAMOATE 25 MG CAPSULE PO SCH ×2 (21:32→23:33)
[2020-12-04] MEDS: hydrOXYzine PAMOATE 25 MG CAPSULE PO SCH (06:31)
[2020-12-04 08:10] VITALS: BP 151/90
--- NOTE | 2020-12-04 08:32 | DISCHARGE SUMMARY ---
Discharge Summary Admit Date: 12/03/20 Discharge Date: 12/04/20 Discharging Provider: wellington puente Code Status: Attempt Resuscitation Condition at Discharge: Good Discharge Disposition: 01 Home, Self Care - DIAGNOSES Admission Diagnoses: incisional hernia Discharge Diagnoses with Status of Each Condition: home in good condition after repair - HPI History of Present Illness: progressive hernia for years - ALLERGIES Allergies/Adverse Reactions: Allergies Allergy/AdvReac Type Severity Reaction Status Date / Time buspirone AdvReac Dizziness Verified 12/03/20 10:51 codeine AdvReac Nausea Verified 12/02/20 10:23 - MEDICATIONS Home Medications: Ambulatory Orders Medication Instructions Recorded Confirmed Divalproex Sodium 500 mg PO QPM 07/06/16 12/03/20 Divalproex Sodium [Depakote ER] 1,000 mg PO DAILY 07/06/16 12/03/20 Gabapentin 100 mg PO BID 07/06/16 12/03/20 Quetiapine Fumarate [Seroquel] 300 mg PO QPM 07/06/16 12/03/20 Mirtazapine [Remeron] 30 mg PO QPM 12/02/20 12/03/20 clonazePAM [KlonoPIN] 0.5 mg PO BID PRN 12/02/20 12/03/20 hydrOXYzine HCL [Hydroxyzine HCl] 50 mg PO TID 12/02/20 12/03/20 Senna [Senokot] 8.6 mg PO DAILY 12/03/20 12/03/20 HYDROcod/ACETAM 5/325 [Dayhoit 5/325] 1 each PO Q6H PRN #20 tab 12/04/20 Ondansetron Odt [Zofran Odt] 4 mg PO Q6H PRN #15 tab 12/04/20 - PHYSICAL EXAM AT DISCHARGE General Appearance: positive: No acute distress, Alert Eyes Bilateral: positive: PERRL, EOMI ENT: positive: No signs of dehydration Respiratory: positive: No respiratory distress Abdomen: positive: Non-tender, No distention, Other (dressing c/d/i. no erythema) Neurologic/Psychiatric: positive: Oriented x3 - FOLLOW UP Follow Up: wellington puente md in 1 week [phone]
[2020-12-04] MEDS ORDERED: DIVALPROEX ER 250 MG TABLET PO SCH (09:00)
[2020-12-04] MEDS: GABAPENTIN 100 MG CAPSULE PO SCH (09:06)
== END 2020-12-04 11:17 | disposition home or self-care (01) ==
LOC: SDS 10:02 → MS2 14:16 → SDS 12-04 11:17
PROVIDERS: ATTEND Surgery
DX: K43.0 Incisional hernia with obstruction, without gangrene (principal); K21.9 Gastro-esophageal reflux disease without esophagitis; E66.9 Obesity, unspecified; Z68.35 Body mass index [BMI] 35.0-35.9, adult; F31.89 Other bipolar disorder; I10 Essential (primary) hypertension; G47.09 Other insomnia; J45.909 Unspecified asthma, uncomplicated; K76.6 Portal hypertension; K74.60 Unspecified cirrhosis of liver; Z79.1 Long term (current) use of non-steroidal anti-inflammatories (NSAID); Z79.899 Other long term (current) drug therapy; Z87.828 Personal history of other (healed) physical injury and trauma; Z72.89 Other problems related to lifestyle
CPT/HCPCS: 49561; 49568; A9270; C1781; J0690; J1170; J2765; J7120

== ENCOUNTER 2021-12-01 11:19 | Outpatient (CLI) | payer MEDICARE ==
[2021-12-01 17:47] LABS: BASOPHILS % (AUTO) 0.7 %; EOSINOPHILS # (AUTO) 0.1 10^3/uL (0.0-0.7); EOSINOPHILS % (AUTO) 1.4 %; HCT - HEMATOCRIT 46.1 % (37.0-47.0); MEAN CORPUSCULAR HEMOGLOBIN 28.3 pg (27.0-31.0); MEAN CORPUSCULAR HGB CONC 32.5 g/dL (32.0-36.0); MEAN PLATELET VOLUME 10.9 fL (7.9-10.8); MONOCYTES # (AUTO) 0.4 10^3/uL (0.0-1.0); NEUTROPHILS # (AUTO) 1.8 10^3/uL (1.5-6.6); PLT - PLATELET COUNT 136 10^3/uL (130-450); RED CELL DISTRIBUTION WIDTH 15.6 % (12.0-15.0); WHITE BLOOD COUNT 4.3 x10^3/uL (4.8-10.8)
[2021-12-01 18:08] LABS: ALBUMIN 3.7 g/dL (3.2-5.5); ALBUMIN/GLOBULIN RATIO 0.9 (1.0-2.2); ALKALINE PHOSPHATASE 63 IU/L (42-121); ALT ALANINE AMINOTRANSFERASE 20 IU/L (10-60); AST ASPARTATE AMINOTRANSFERASE 19 IU/L (10-42); BILIRUBIN,TOTAL 0.9 mg/dL (0.2-1.0); BUN - BLOOD UREA NITROGEN 11 mg/dL (6-20); CALCIUM 9.1 mg/dL (8.5-10.3); CARBON DIOXIDE - CO2 29 mmol/L (21-32); CHLORIDE 98 mmol/L (101-111); CHOL/HDL RATIO 4.1 (<4.4); CHOLESTEROL 167 mg/dL; GFR - MDRD 57 (>89); GLUCOSE 191 mg/dL (70-100); HDL CHOLESTEROL 41 mg/dL; LDL CHOLESTEROL,CALCULATED 88 mg/dL; LDL/HDL RATIO 2.1 (<4.4); POTASSIUM 3.5 mmol/L (3.5-5.0); SODIUM 139 mmol/L (135-145); TOTAL PROTEIN 7.8 g/dL (6.7-8.2); TRIGLYCERIDES 192 mg/dL; VALPROIC ACID (DEPAKOTE) 99.3 ug/mL; VLDL CHOLESTEROL 38 mg/dL
[2021-12-01 20:10] LABS: ESTIMATED AVERAGE GLUCOSE 194 mg/dL (70-100); HEMOGLOBIN A1c% 8.4 % (4.27-6.07)
== END 2021-12-01 11:20 | disposition home or self-care (01) ==
LOC: LAB.N 11:19
PROVIDERS: ATTEND Psychiatry & Neurology Psychiatry
DX: Z51.81 Encounter for therapeutic drug level monitoring (principal); F31.5 Bipolar disorder, current episode depressed, severe, with psychotic features; Z79.899 Other long term (current) drug therapy
CPT/HCPCS: 36415; 80053; 80061; 80164; 83036; 83721; 85025

== ENCOUNTER 2022-02-27 15:06 | Outpatient (CLI) | payer MEDICARE ==
--- NOTE | 2022-02-27 16:54 | DEXA Report ---
PROCEDURE: Dexa Spine and/or Hip INDICATIONS: OSTEOPOROSIS TECHNIQUE: Dual energy x-ray absorptiometry (DXA) was performed on a [employer] System. Regions measur ed are the AP Spine, femoral neck, and if needed forearm. COMPARISON: None. FINDINGS: Lumbar Spine: Bone Mineral Density 0.88 g/cm/cm,T score -2.7, osteoporosis Left Hip: Bone Mineral Density 0.63 g/cm/cm,T score -3.0, osteoporosis Impression: Osteoporosis. Patients with diagnosis of osteoporosis or osteopenia should have regular bone mineral density assess ment. For those eligible for Medicare, routine testing is allowed once every 2 years. Testing frequ ency can be increased for patients who have rapidly progressing disease or for those who are receivin g medical therapy to restore bone mass. Reviewed by: Navi Connor MD on 02/27/2022 4:53 PM PDT Approved by: Navi Connor MD on 02/27/2022 4:53 PM PDT Station ID: [id number]
== END 2022-02-27 15:07 | disposition home or self-care (01) ==
LOC: DI 15:06
PROVIDERS: ATTEND Nurse Practitioner Family
DX: M81.0 Age-related osteoporosis without current pathological fracture (principal)

== ENCOUNTER 2022-04-24 11:48 | Outpatient (CLI) | payer MEDICARE ==
[2022-04-24 17:53] LABS: BASOPHILS % (AUTO) 0.6 %; EOSINOPHILS # (AUTO) 0.1 10^3/uL (0.0-0.7); EOSINOPHILS % (AUTO) 1.5 %; HCT - HEMATOCRIT 41.8 % (37.0-47.0); HGB - HEMOGLOBIN 13.4 g/dL (12.0-16.0); LYMPHOCYTES # (AUTO) 1.5 10^3/uL (1.5-3.5); MEAN CORPUSCULAR HEMOGLOBIN 30.9 pg (27.0-31.0); MEAN CORPUSCULAR HGB CONC 32.1 g/dL (32.0-36.0); MEAN CORPUSCULAR VOLUME 96.3 fL (81.0-99.0); MEAN PLATELET VOLUME 11.4 fL (7.9-10.8); MONOCYTES # (AUTO) 0.3 10^3/uL (0.0-1.0); MONOCYTES % (AUTO) 7.8 %; NEUTROPHILS # (AUTO) 1.4 10^3/uL (1.5-6.6); NEUTROPHILS % (AUTO) 42.3 %; PLT - PLATELET COUNT 137 10^3/uL (130-450); RED BLOOD COUNT 4.34 10^6/uL (4.20-5.40); RED CELL DISTRIBUTION WIDTH 14.1 % (12.0-15.0); WHITE BLOOD COUNT 3.4 x10^3/uL (4.8-10.8)
[2022-04-24 18:03] LABS: ALBUMIN 3.6 g/dL (3.2-5.5); BILIRUBIN,TOTAL 0.6 mg/dL (0.2-1.0); CALCIUM 9.2 mg/dL (8.5-10.3); TOTAL PROTEIN 7.2 g/dL (6.7-8.2)
[2022-04-24 20:21] LABS: ESTIMATED AVERAGE GLUCOSE 163 mg/dL (70-100); HEMOGLOBIN A1c% 7.3 % (4.27-6.07)
== END 2022-04-24 11:49 | disposition home or self-care (01) ==
LOC: LAB.N 11:48
PROVIDERS: ATTEND Nurse Practitioner Family
DX: E11.9 Type 2 diabetes mellitus without complications (principal); E55.9 Vitamin D deficiency, unspecified
CPT/HCPCS: 36415; 80053; 82306; 83036; 85025

== ENCOUNTER 2022-05-12 10:23 | Outpatient (CLI) | payer MEDICARE ==
--- NOTE | 2022-05-13 10:38 | Mammography Report ---
BILATERAL DIGITAL SCREENING MAMMOGRAM 3D/2D WITH AUGMENTATION: 05/12/2022 CLINICAL: Routine screening. Comparison is made to exam dated: 07/27/2017 mammogram - [facility]. There are sc attered fibroglandular elements in both breasts. Bilateral breast implants are stable. There are benign calcifications in both breasts. No significant masses, calcifications, or other findings are seen in either breast. There has been no significant interval change. IMPRESSION: BENIGN There is no mammographic evidence of malignancy. A 1 year screening mammogram is recommended. Based on the Tyrer Cuzick model (a risk assessment model) the patients lifetime risk is 5.0% and her 10 year risk is 1.8%. According to the ACR, ACS, and NCCN guidelines, an annual breast MRI exam jana g with mammogram is recommended if the patients lifetime risk is 20% or greater. This exam was interpreted at Station ID: [id number]. NOTE: For mammograms, a report in lay terms will be sent to the patient. Approximately 15% of breast malignancies will not be visualized mammographically. In the management of a palpable breast mass, a negative mammogram must not discourage biopsy of a clinically suspicious lesion. Electronically Signed By: Ruben Davis acr/penrad:05/12/2022 11:09:30 ACR BI-RADS Category 2: Benign Finding(s) 3342F PARENCHYMAL PATTERN: (A) - The breast(s) demonstrate(s) scattered fibroglandular densities. BI-RADS CATEGORY: (2) - 2 RECOMMENDATION: (ANNUAL) - Recommend routine annual screening mammography. [id number] 1 year screening LATERALITY: (B)
== END 2022-05-12 10:24 | disposition home or self-care (01) ==
LOC: DI.N 10:23
PROVIDERS: ATTEND Nurse Practitioner Family
DX: Z12.31 Encounter for screening mammogram for malignant neoplasm of breast (principal)